=== PATIENT | male | born 2005 | race Caucasian/White ===

== ENCOUNTER 2023-12-06 17:00 | Emergency (ER) | payer BC, SELFPAY ==
[2023-12-06 17:02] VITALS: BP 133/63
[2023-12-06 17:23] LABS: % Basophils 0.4 % (0-2); % Eosinophils 4.5 % (0-6); % Immature Granulocytes 0.4 % (0-0.5); % Lymphocytes 35.5 % (20.5-51.1); % Monocytes 7.8 % (1.7-9.3); % Neutrophils 51.4 % (42.2-75.2); Absolute Eosinophils 0.2 10^3/uL (0-0.7); Absolute Lymphocytes 1.9 10^3/uL (1.2-3.4); Absolute Monocytes 0.4 10^3/uL (0.1-0.6); Absolute Neutrophils 2.7 10^3/uL (1.4-6.5); Hematocrit 39.1 % (39.0-52.0); Hemoglobin 13.5 g/dL (13.0-18.0); Mean Corp Hgb Conc. 34.5 g/dL (33.0-37.0); Mean Corpuscular Volume 89.9 fL (80.0-94.0); Mean Platelet Volume 10.2 fL (7.4-10.4); Nucleated Red Blood Cells % 0 % (-); Platelet Count 197 10^3/uL (130-400); Red Blood Cell Count 4.35 10^6/uL (4.70-6.10); Red Cell Dist. Width 11.9 % (11.5-14.5); White Blood Cell Count 5.3 10^3/uL (4.8-10.8)
[2023-12-06 17:35] LABS: ALT (SGPT) 32 U/L (0-50); AST (SGOT) 54 U/L (17-59); Albumin 4.8 g/dl (3.5-5.0); Alkaline Phosphatase 57 U/L (38-126); Blood Urea Nitrogen 24 mg/dl (9-20); Carbon Dioxide 25 mmol/L (22-30); Chloride 101 mmol/L (98-107); Glucose 89 mg/dl (70-99); Sodium 138 mmol/L (135-145); Total Bilirubin 0.6 mg/dl (0.2-1.3); Total Protein 7.7 g/dl (6.3-8.2); eGFR > 60.00
[2023-12-06 17:36] LABS: Lipase 224 U/L (23-300)
--- NOTE | 2023-12-06 19:47 | ED.GENMED ---
History of Present Illness
General
Chief Complaint: Abdominal Symptoms
Source: patient and family
Time Seen by Provider: 12/06/23 19:26
Travel History
Have you had any contact with someone who has COVID-19?: No
Do you have any symptoms of coronavirus? Fever > 100 degrees, chills, cough, shortness of breath, sore throat, loss of taste or smell, muscle aches, or headache?: No
History of Present Illness
History of Present Illness:
18-year-old male with no significant past medical history but getting worked up for chronic GI symptoms presenting to the emergency department for evaluation of an acute on chronic exacerbation of abdominal bloating and discomfort that started last
night shortly after dinner which composed of Faro, brown rice, vegetables and fish, had multiple episodes of watery diarrhea with the abdominal pain/bloating, seem to have subsided around 1 AM but woke up this morning with continued abdominal
discomfort prompting them to come to the ER today. Patient has undergone extensive outpatient workup and is scheduled for an endoscopy this coming . Patient did have a 15-hour fast 2 weeks ago prior to an endoscopy but the procedure had to
be aborted due to continued food within the stomach. Patient denies any new symptoms last night or into today. No other concerns at this time. Patient did take a antacid last night with some relief.
Past History
Past History
ED Past Medical History: Other (ADHD)
ED Past Surgical History: Other (Nasal surgery)
Social History
Tobacco: Non-smoker (No secondhand smoke exposure)
Alcohol: None
Drug: None
Personal: Single
Living: with family
Review of Systems
Review of Systems
All Other Systems: ROS reviewed and negative except as documented in HPI and ROS
Phy Exam
Physical Exam
Physical Exam:
GENERAL: Alert , in no apparent distress
EYE: clear conjunctiva b/l
HEAD: NCAT
ENT: mmm.
CARDIAC: Regular rate and rhythm .
LUNGS: Clear breath sounds bilaterally, no acute respiratory distress, no wheezes/rales/rhonchi
ABDOMEN: Soft, without focal tenderness, no r/g, no cvat
NEUROLOGICAL: Alert and oriented
SKIN: Warm and dry, skin intact.
MUSCULOSKELETAL: well perfused.
PSYCH: Normal and appropriate interaction.
Scores
Heart Failure Risk
Heart Failure Risk Score: Not Applicable
Heart Score for Chest Pain Patients
STEMI patient?: Not applicable
Withdrawal Assessment of Alcohol
Withdrawal Assessment Completed?: Not applicable
Course
Orders/Labs/Results
Orders:
Orders
12/06/23 17:11
Complete Blood Count/With Diff Urgent
Comprehensive Metabolic Panel Urgent
Lipase Urgent
12/06/23 20:00
Dicyclomine [Bentyl] 20 mg PO NOW STA
Abnormal Lab Results
12/06/23
17:11
RBC 4.35 L 10^6/uL
(4.70-6.10)
BUN 24 H mg/dl
(9-20)
12/06/23 17:11
12/06/23 17:11
Vital Signs
Initial and Last Documented VS:
Initial Vital Signs
Temp Pulse Resp BP Pulse Ox
98.0 F 60 16 133/63 98
12/06/23 17:02 12/06/23 17:02 12/06/23 17:02 12/06/23 17:02 12/06/23 17:02
Last Documented Vital Signs
Temp Pulse Resp BP Pulse Ox
98.0 F 52 18 124/60 100
12/06/23 17:02 12/06/23 20:04 12/06/23 20:04 12/06/23 20:04 12/06/23 20:04
MDM/Problems Addressed
Differential Diagnosis Includes:
Gastroparesis, GERD, gastritis, colitis, overall I do not have concern for an acute appendicitis or cholecystitis or surgical abdomen
MDM/Problems Addressed:
18-year-old male presenting emergency department with acute on chronic exacerbation of GI related symptoms, symptoms seem to be worse last night, back to baseline today. Exam is reassuring. Lab work was ordered in triage and is unremarkable.
Overall I explained to patient and mother that I did not suspect any acute emergent pathologies and that I did not feel a CT would likely change patient's disposition or outcome and that this is likely an exacerbation of his chronic symptoms. They
have undergone extensive outpatient workup, dietary modifications, radiology imaging but with no specific etiology found. Will trial dicyclomine as needed. Patient will follow-up with his GI physician on as scheduled for his endoscopy.
Aware of return precautions but otherwise stable for discharge home.
*Pulse Oximetry
Patient hypoxic: no
*Critical Care Note
Total Time (30-74mins, 75-104mins- exclusive of procedures): Not Applicable
ED Attending Note
-
Portions of this chart may have been created with voice recognition software.� Occasional wrong word or��sound alike� substitutions may have occurred due to the inherent limitations of voice recognition software.
Discharge Plan
Departure
Patient Disposition: Home (Routine Discharge)
Date of Disposition: 12/06/23
Time of Disposition: 19:48
Patient with high blood pressure during this ER visit?: No
Discharge Problem:
Abdominal pain
Instructions: Abdominal Pain
Prescriptions:
New
dicyclomine 20 mg tablet
20 mg PO BID PRN (Reason: abdominal pain) Qty: 10 0RF
No Action
phenazopyridine [Pyridium] 100 mg tablet
100 mg PO TID PRN (Reason: Pain) Qty: 6 0RF
prednisone 20 mg tablet
20 mg PO DAILY Qty: 5 0RF
hydroxyzine HCl 50 mg tablet
50 mg PO TID PRN (Reason: itching) Qty: 15 0RF
oxycodone-acetaminophen [Percocet] 5-325 mg Tablet
1 tab PO Q6HPRN PRN (Reason: pain) Qty: 6 0RF
prednisone 10 mg Tablet
See Rx Instructions .ROUTE .COMPLEX Qty: 30 0RF
Rx Instructions:
Take By Mouth:
40 mg daily x3 days, 30 mg daily x3 days,
20 mg daily x3 days, 10 mg daily x3 days.
Referrals:
José Scott, DO [Family Provider] -
Interventions
Interventions:
*Risk Screen - Suicide Last Done: 12/06/23 18:08
*General Assessment Last Done: 12/06/23 18:08
*Neglect/Abuse Screening Last Done: 12/06/23 18:08
ED- Fall Risk Assessment Last Done: 12/06/23 18:08
*ED COVID-19 Vaccine History Last Done: 12/06/23 17:02
*Nursing Disposition Last Done: 12/06/23 20:07
WA-Ohavby-Eqyxtzeavo Assessment Last Done: 12/06/23 18:08
Discharge Date and Time
Discharge Date/Time: 12/06/23 20:08
[2023-12-06] MEDS: BENTYL 20 MG PO (20:03)
[2023-12-06 20:04] VITALS: BP 124/60
== END 2023-12-06 20:08 | disposition home or self-care (01) ==
LOC: EMR 17:00
PROVIDERS: Emergency Medicine; EMERGENCY PHYSICIAN Emergency Medicine; FAMILY PHYSICIAN Pediatrics
DX: R10.9 Unspecified abdominal pain (principal); R14.0 Abdominal distension (gaseous); R19.7 Diarrhea, unspecified
CPT/HCPCS: 99283; 80053; 83690; 85025

== ENCOUNTER 2024-11-08 16:39 | Emergency (ER) | payer BC, SELFPAY ==
[2024-11-08 16:48] VITALS: BP 145/85
[2024-11-08 17:20] LABS: % Basophils 0.5 % (0-2); % Eosinophils 1.1 % (0-6); % Lymphocytes 38.1 % (20.5-51.1); % Monocytes 6.9 % (1.7-9.3); % Neutrophils 53.4 % (42.2-75.2); Absolute Lymphocytes 1.4 10^3/uL (1.2-3.4); Absolute Monocytes 0.3 10^3/uL (0.1-0.6); Hematocrit 38.8 % (39.0-52.0); Hemoglobin 13.8 g/dL (13.0-18.0); Mean Corp Hgb Conc. 35.6 g/dL (33.0-37.0); Mean Corpuscular Hgb 31.4 pg (27.0-31.0); Mean Corpuscular Volume 88.4 fL (80.0-94.0); Mean Platelet Volume 10.5 fL (7.4-10.4); Nucleated Red Blood Cells % 0 % (-); Platelet Count 173 10^3/uL (130-400); Red Blood Cell Count 4.39 10^6/uL (4.70-6.10); Red Cell Dist. Width 11.9 % (11.5-14.5); White Blood Cell Count 3.8 10^3/uL (4.8-10.8)
[2024-11-08 17:33] LABS: Blood Urea Nitrogen 18 mg/dl (9-20); Calcium 9.9 mg/dl (8.4-10.2); Carbon Dioxide 31 mmol/L (22-30); Chloride 94 mmol/L (98-107); Glucose 86 mg/dl (70-99); Potassium 3.8 mmol/L (3.5-5.1); Sodium 135 mmol/L (135-145); eGFR > 60.00
[2024-11-08 17:37] LABS: Alcohol None Detected
[2024-11-08 17:40] LABS: Amphetamines Negative (Negative); Barbiturates Negative (Negative); Benzodiazepines Negative (Negative); Buprenorphine Negative (Negative); Cocaine Negative (Negative); Marijuana Positive (Negative); Methadone Negative (Negative); Methamphetamines Negative (Negative); Opiates Negative (Negative); Phencyclidine Negative (Negative); Tricyclic Antidepressants Negative (Negative)
[2024-11-08 17:43] LABS: COVID-19 Antigen Negative (Negative)
--- NOTE | 2024-11-08 18:09 | ED.GENMED ---
History of Present Illness
<Florina Wilcox PA-C - Last Filed: 11/09/24 00:02>
General
Chief Complaint: Suicidal Ideation
Source: patient
Exam Limitations: none
Time Seen by Provider: 11/08/24 17:35
Nursing documentation reviewed up to this point in time: agreed with
History of Present Illness
History of Present Illness:
Patient is a 19M who presents to the emergency department for crisis evaluation. Patient reports significant suicidal ideations and thoughts of self-harm. Patient denies any suicidal plan. Patient feels that there is no one that is able to help
him. He presents seeking inpatient treatment. Patient concerned that if he goes home he will act on the suicidal thoughts.
He reports significant history of body dysmorphia/eating disorders including bulimia, anorexia. Patient states that he has nothing going from his life. He has no job, no friend, he is not in school. Patient is seen by a psychologist weekly. He
does have a history of inpatient treatment.
Patient denies any HI. No visual/auditory hallucinations.
Patient denies drinking alcohol. No substance abuse.
No other complaints today.
Past History
<Florina Wilcox PA-C - Last Filed: 11/09/24 00:02>
Past History
ED Past Medical History: Other (ADHD)
ED Past Surgical History: Other (Nasal surgery)
Social History
Tobacco: Non-smoker (No secondhand smoke exposure)
Alcohol: None
Drug: None
Personal: Single
Living: with family
Review of Systems
<Florina Wilcox PA-C - Last Filed: 11/09/24 00:02>
Review of Systems
Allergies reviewed?: Yes
All Other Systems: ROS reviewed and negative except as documented in HPI and ROS
Phy Exam
<Florina Wilcox PA-C - Last Filed: 11/09/24 00:02>
Physical Exam
Physical Exam:
Vitals: Patient's vital signs are stable. Afebrile
General: Patient is in no acute distress.
Skin: Warm and dry, no rashes or lesions
Head: Normocephalic, atraumatic
Throat: Protecting airway
Neck: Normal ROM, no cervical spine tenderness
Cardiac: Regular rate
Pulm: No apparent respiratory distress. Lungs clear bilaterally
Abdomen: Nondistended
Extremities: No evidence of cyanosis or edema
Neuro: Grossly intact
Psychiatric: Does not maintain eye contact. Anxious. Cooperative with exam. Answers questions.
Course
<Florina Wilcox PA-C - Last Filed: 11/09/24 00:02>
Orders/Labs/Results
Orders:
Orders
11/08/24 17:00
1:1 Observation - Suicide/ Violent Behavior As Directed
Crisis Consult Urgent
Reason for Consult: +SI
11/08/24 17:03
Alcohol Urgent
Basic Metabolic Panel Urgent
COVID-19 Antigen Urgent
Source: Nasal Swab
Complete Blood Count/With Diff Urgent
Urine Drug Abuse Screen Urgent
Date Specimen was Collected: 11/08/24
Time Specimen was Collected: 17:02
Abnormal Lab Results
11/08/24
17:03
WBC 3.8 L 10^3/uL
(4.8-10.8)
RBC 4.39 L 10^6/uL
(4.70-6.10)
Hct 38.8 L %
(39.0-52.0)
MCH 31.4 H pg
(27.0-31.0)
MPV 10.5 H fL
(7.4-10.4)
Chloride 94 L mmol/L
(98-107)
Carbon Dioxide 31 H mmol/L
(22-30)
U Marijuana (THC) Screen Positive H
(Negative)
11/08/24 17:03
11/08/24 17:03
Vital Signs
Initial and Last Documented VS:
Initial Vital Signs
Temp Pulse Resp BP Pulse Ox
97.8 F 51 16 145/85 100
11/08/24 16:48 11/08/24 16:48 11/08/24 16:48 11/08/24 16:48 11/08/24 16:48
Last Documented Vital Signs
Temp Pulse Resp BP Pulse Ox
97.9 F 48 18 127/61 100
11/08/24 18:56 11/08/24 22:26 11/08/24 22:26 11/08/24 22:26 11/08/24 22:26
<Ruben Smith, DO - Last Filed: 11/08/24 20:40>
Orders/Labs/Results
Orders:
Orders
11/08/24 17:00
1:1 Observation - Suicide/ Violent Behavior As Directed
Crisis Consult Urgent
Reason for Consult: +SI
11/08/24 17:03
Alcohol Urgent
Basic Metabolic Panel Urgent
COVID-19 Antigen Urgent
Source: Nasal Swab
Complete Blood Count/With Diff Urgent
Urine Drug Abuse Screen Urgent
Date Specimen was Collected: 11/08/24
Time Specimen was Collected: 17:02
Abnormal Lab Results
11/08/24
17:03
WBC 3.8 L 10^3/uL
(4.8-10.8)
RBC 4.39 L 10^6/uL
(4.70-6.10)
Hct 38.8 L %
(39.0-52.0)
MCH 31.4 H pg
(27.0-31.0)
MPV 10.5 H fL
(7.4-10.4)
Chloride 94 L mmol/L
(98-107)
Carbon Dioxide 31 H mmol/L
(22-30)
U Marijuana (THC) Screen Positive H
(Negative)
11/08/24 17:03
11/08/24 17:03
Vital Signs
Initial and Last Documented VS:
Initial Vital Signs
Temp Pulse Resp BP Pulse Ox
97.8 F 51 16 145/85 100
11/08/24 16:48 11/08/24 16:48 11/08/24 16:48 11/08/24 16:48 11/08/24 16:48
Last Documented Vital Signs
Temp Pulse Resp BP Pulse Ox
97.9 F 48 18 127/61 100
11/08/24 18:56 11/08/24 22:26 11/08/24 22:26 11/08/24 22:26 11/08/24 22:26
<Florina Wilcox PA-C - Last Filed: 11/09/24 00:02>
MDM/Problems Addressed
Differential Diagnosis Includes:
Not limited to: Depression, anxiety, OCD, suicidal ideation, acute psychosis, etc.
MDM/Problems Addressed:
19-year-old male presenting for crisis evaluation. History of multiple eating disorders, body dysmorphia, anxiety, depression. Patient does have some passive suicidal thoughts no active plan. No HI. No visual/auditory hallucinations. Patient
seeking possible inpatient care. No history of suicidal attempts. Mildly hypertensive on arrival although normalized by my assessment. Physical exam as above. Basic labs and urine drug screen were initiated in triage. No clinically significant
abnormalities. Patient did screen positive for marijuana.
Ultimately�do not feel patient is an active threat to himself or others. Patient appears well-nourished. I do feel patient would benefit from possible inpatient care, if available. Will obtain crisis consult for further input.
Update: Crisis team unable to place patient inpatient tonight. However�there were multiple referrals placed out for possible inpatient, partial placement, IOP facilities. They will contact patient at home. Feel patient is stable for discharge
home. No active suicidal plan. He will continue to follow with psychology outpatient closely. Advised patient to return with any SI/HI or worsening symptoms. Patient seen with attending physician
Chronic conditions affecting care:
OCD, anorexia, bulimia, depression
Acute Exacerbation and/or Progression of Chronic Illness:
N/A
<Florina Wilcox PA-C - Last Filed: 11/09/24 00:02>
*Pulse Oximetry
Patient hypoxic: no
*EKG
Interpreted by ED Provider?: NA
*Gun Examiner Interpretation
Rate: Gun Examiner- N/A
*Critical Care Note
Total Time (30-74mins, 75-104mins- exclusive of procedures): Not Applicable
ED Attending Note
<Florina Wilcox PA-C - Last Filed: 11/09/24 00:02>
-
Portions of this chart may have been created with voice recognition software.� Occasional wrong word or��sound alike� substitutions may have occurred due to the inherent limitations of voice recognition software.
<Ruben Smith DO - Last Filed: 11/08/24 20:40>
ED Attending Note
Patient seen and examined by attending physician: Yes
I performed the substantive portion of visit, reviewed & personally made and approve the management plan that is documented in note by myself or EDIS.: Yes
ED Attending Note:
Seen with PA examined independently 19-year-old male OCD body dysmorphia cis male presents with depression anxiety thoughts of harming himself
Discharge Plan
Departure
Patient Disposition: Home (Routine Discharge)
Date of Disposition: 11/08/24
Time of Disposition: 23:57
Patient with high blood pressure during this ER visit?: No
Condition: Good
Covid-19: Not Applicable
Discharge Problem:
Eating disorder, unspecified, Anxiety, Depression
Instructions: Depression, Adult (DC), Eating disorders
Prescriptions:
No Action
hydroxyzine HCl 50 mg tablet
50 mg PO TID PRN (Reason: itching) Qty: 15 0RF
Referrals:
UNKNOWN - PT NOT,INTERVIEWE [Family Provider] -
Activity Restrictions/Additional Instructions:
Return to the emergency department with any thoughts of harming yourself or others, visual/auditory hallucinations, signs of severe dehydration, worsening in current symptoms, or any other concerns
-As discussed�multiple referrals were placed out to facilities for possible treatment. They will contact you at home
-You should continue to follow up with your psychologist outpatient for further management/evaluation
-It is important stay well-hydrated. Eat a balanced diet.
Monitor your symptoms closely and return to the emergency department with any acute worsening/new symptoms or any other concerns
Interventions
Interventions:
*Risk Screen - Suicide Last Done: 11/08/24 16:48
*General Assessment Last Done: 11/08/24 18:58
*Neglect/Abuse Screening Last Done: 11/08/24 16:48
*ED COVID-19 Vaccine History Last Done: 11/08/24 18:58
ED-Psychological Assessment Last Done: 11/08/24 18:59
Discharge Date and Time
Print Language: SINHALA
[2024-11-08 18:56] VITALS: BP 113/85
[2024-11-08 18:57] VITALS: BMI 20.1
[2024-11-08 22:26] VITALS: BP 127/61
[2024-11-09 00:18] VITALS: BP 118/74
== END 2024-11-09 00:19 | disposition home or self-care (01) ==
LOC: EMR 16:39
PROVIDERS: Emergency Medicine; EMERGENCY PHYSICIAN Emergency Medicine
DX: F32.A Depression, unspecified (principal); F41.9 Anxiety disorder, unspecified; F50.9 Eating disorder, unspecified; F42.9 Obsessive-compulsive disorder, unspecified
CPT/HCPCS: 99283; 80048; 80306; 82077; 85025; 87811

== ENCOUNTER 2025-06-16 14:08 | Emergency (ER) | payer BC, SELFPAY ==
[2025-06-16 14:10] VITALS: BP 130/83
[2025-06-16 14:14] VITALS: BMI 23.1
[2025-06-16] MEDS: BENADRYL 50 MG PO (14:22)
--- NOTE | 2025-06-16 15:15 | ED.GENMED ---
History of Present Illness
General
Chief Complaint: Skin Problem
Source: patient
Exam Limitations: none
Time Seen by Provider: 06/16/25 14:22
Nursing documentation reviewed up to this point in time: agreed with
History of Present Illness
History of Present Illness:
19 y/o M
h/o adhd, anxiety, depression, anorexia
here with itchy rash that broke out all over body while he was watching tv today
pt says that he started venlafaxine last night and then again took another dose today and within the hour he started with this itchy rash which felt warm
pt says his ears also felt hot too.
pt had no trouble breathing, trouble swallowing, vomiting, diarrhea
he has not been sick with any cold sypmtoms
there have not been any new detergents, pets
he had eaten but says that it was not anything he hasn't had before
he has had venlafaxine before but last li, stopped it after a few months but restarted it per his psychiatrist
never had this reaction before
Past History
Past History
ED Past Medical History: Other (ADHD)
ED Past Surgical History: Other (Nasal surgery)
Social History
Tobacco: Non-smoker (No secondhand smoke exposure)
Alcohol: None
Drug: None
Personal: Single
Living: with family
Phy Exam
Physical Exam
Physical Exam:
GENERAL: Alert , in no apparent distress, mildly anxious
EYE: pupils equal and reactive
NECK: Supple
ENT: o/p clr, mmm.
CARDIAC: Regular rate and rhythm .
LUNGS: Clear breath sounds bilaterally, no acute respiratory distress, no wheezes/rales/rhonchi
ABDOMEN: Soft, without focal tenderness, no r/g, no cvat, normal bowel sounds
NEUROLOGICAL: Alert and oriented, no focal neuro deficits
SKIN: Warm and dry, skin intact.
no urticaria visualized
MUSCULOSKELETAL: No edema, well perfused. neg renetta's sign
PSYCH: mildly anxious
Course
Orders/Labs/Results
Orders:
Orders
06/16/25 14:17
Diphenhydramine [Benadryl] 50 mg PO NOW STA
Vital Signs
Initial and Last Documented VS:
Initial Vital Signs
Temp Pulse Resp BP Pulse Ox
37.1 C 82 16 130/83 100
06/16/25 14:10 06/16/25 14:10 06/16/25 14:10 06/16/25 14:10 06/16/25 14:10
Last Documented Vital Signs
Temp Pulse Resp BP Pulse Ox
37.1 C 74 20 115/84 99
06/16/25 14:10 06/16/25 15:25 06/16/25 15:25 06/16/25 15:25 06/16/25 15:25
MDM/Problems Addressed
Differential Diagnosis Includes:
urticaria, allergic reaction
MDM/Problems Addressed:
19 y/o M with anxiety/depression
says he was watching tv not feeling anxious or having any issues and suddenly felt warm and itchy and noticed hives all over
pt had no trouble breathing, vomiting
he has recently restarted venlafaxine after being on it last year
took a dose last night and a dose today
he ate typical food today without any new foods
he received benadryl in the triage area by RN and now has no urticaria for me to see
no oral swelling
lungs clear
d/c home
*Pulse Oximetry
SaO2: 100
Oxygen Mode of Delivery: Room air
Patient hypoxic: no (100)
*Critical Care Note
Total Time (30-74mins, 75-104mins- exclusive of procedures): Not Applicable
ED Attending Note
-
Portions of this chart may have been created with voice recognition software.� Occasional wrong word or��sound alike� substitutions may have occurred due to the inherent limitations of voice recognition software.
Discharge Plan
Departure
Patient Disposition: Home (Routine Discharge)
Date of Disposition: 06/16/25
Time of Disposition: 15:22
Patient with high blood pressure during this ER visit?: No
Condition: Fair
Covid-19: Not Applicable
Discharge Problem:
Urticaria
Instructions: Hives (DC)
Prescriptions:
No Action
hydroxyzine HCl 50 mg tablet
50 mg PO TID PRN (Reason: itching) Qty: 15 0RF
Activity Restrictions/Additional Instructions:
WE ARE NOT SURE THE CAUSE OF YOUR RASH
IT COULD HAVE BEEN FROM THE MEDICATION OR IT COULD HAVE BEEN FROM STRESS OR ANOTHER TYPE OF ALLERGEN
TRY BENADRYL 50 MG BEOFRE BED TONIGHT
AND THEN TOMORROW 2-3 TIMES A DAY NEEDED
RETURN FOR ANY CONCERNS
TALK WITH YOUR PSYCHIATRIST ABOUT A NEW MEDICATION JUST IN CASE YOU ARE ALLERGIC.
Interventions
Interventions:
*Risk Screen - Suicide Last Done: 06/16/25 15:00
*General Assessment Last Done: 06/16/25 15:00
*Neglect/Abuse Screening Last Done: 06/16/25 15:00
*Nursing Disposition Last Done: 06/16/25 15:25
ED- Cardiac Assessment Last Done: 06/16/25 15:00
ED- Pulmonary Assessment Last Done: 06/16/25 15:00
ED-Skin Assessment Last Done: 06/16/25 15:00
Discharge Date and Time
Discharge Date/Time: 06/16/25 16:50
Print Language: SURINAMESE
[2025-06-16 15:25] VITALS: BP 115/84
== END 2025-06-16 16:50 | disposition home or self-care (01) ==
LOC: EMR 14:08
PROVIDERS: EMERGENCY PHYSICIAN Emergency Medicine; FAMILY PHYSICIAN Pediatrics
DX: L50.9 Urticaria, unspecified (principal)
CPT/HCPCS: 99283